=== PATIENT | female | born 1945 | race Caucasian/White ===

== ENCOUNTER 2017-06-12 10:10 | Emergency (ER) | payer OTHER ==
[2017-06-12] MEDS ORDERED: LABETALOL 20 MG/4ML SYRINGE IV ONE (10:54)
[2017-06-12 11:00] LABS: Absolute Lymphocytes (CBC) 1.7 K/uL (0.7-4.9); Absolute Monocytes 0.4 K/uL (0.1-1.3); Absolute Neutrophil 9.7 K/uL (1.8-8.0); Basophils % 0.3 % (0-1.3); Eosinophils % 0.5 % (0-4.4); Lymphocytes % 14.2 % (15.3-44.8); MCH 28.9 pg (27.0-35.0); MCV 89.2 fL (80-100); MPV 9.5 fL (7.6-11.3); Monocytes % 3.4 % (3.3-12.3); RBC Red Blood Cell Count 5.15 M/uL (3.86-4.86)
[2017-06-12 11:01] LABS: Protime INR 0.93
--- NOTE | 2017-06-12 11:05 | RAD REPORT ---
EXAM DESCRIPTION: RAD - Chest Single View - 06/12/2017 10:59 am CLINICAL HISTORY: Hypertension, shortness of breath. COMPARISON: None. FINDINGS: Portable technique limits examination quality. The lungs are grossly clear. The heart is normal in size. No displaced fractures.Hardware is present distal left clavicle. IMPRESSION: No acute intrathoracic process suspected.
[2017-06-12 11:07] LABS: Urine Blood 1+ (NEG); Urine Glucose NEGATIVE (NEG); Urine Protein NEGATIVE (NEG); Urine Specific Gravity 1.015 (1.005-1.030)
[2017-06-12 11:14] LABS: Potassium 3.5 mEq/L (3.6-5.0)
[2017-06-12 11:15] LABS: Magnesium 2.3 mg/dL (1.8-2.5)
[2017-06-12] MEDS ORDERED: HYDRALAZINE HCL 20 MG/ML VIAL ONE (13:02)
--- NOTE | 2017-06-12 13:24 | EDPHYS ---
Physician Documentation [facility] Name: Lily Glaser Age: 71 yrs Sex: Female : 1945 Arrival Date: 06/12/2017 Time: 10:12 Bed 7 Private MD: ED Physician Damián Briggs HPI: 06/12 11:09 This 71 yrs old Female presents to ER via Ambulatory with complaints of High jr8 Blood Pressure. 11:09 The patient has elevated blood pressure and discovered this at home. Onset: The jr8 symptoms/episode began/occurred acutely, today. Associated signs and symptoms: Pertinent positives: dizziness, shortness of breath. Severity of symptoms: At its worst the blood pressure was moderate, in the emergency department the blood pressure is unchanged. The patient has experienced a previous episode. The patient has not recently seen a physician. Patient stated that she has history of blood pressure problems in past. Currently on Lisinopril and clonidine patch. Stated that both have been doing well for a while but had sudden spike this morning. Denies change in meds, or lifestyle. Historical: - Allergies: 10:26 Isosorbide Mononitrate; ss 10:26 diltiazem ER; ss - Home Meds: 10:26 clonidine patch 0.1mg/24 hr [Active]; levothyroxine 75 mcg tab 1 tab once daily ss [Active]; lisinopril 40 mg Oral tab 1 tab once daily [Active]; - PMHx: 10:29 Hypertension; sv - PSHx: 10:29 shoulder; sv - Immunization history:: Adult Immunizations up to date. - Social history:: Smoking status: Patient/guardian denies using tobacco. ROS: 11:09 Eyes: Negative for injury, pain, redness, and discharge, ENT: Negative for injury, jr8 pain, and discharge, Neck: Negative for injury, pain, and swelling, Cardiovascular: Negative for chest pain, palpitations, and edema, Abdomen/GI: Negative for abdominal pain, nausea, vomiting, diarrhea, and constipation, Back: Negative for injury and pain, MS/Extremity: Negative for injury and deformity, Skin: Negative for injury, rash, and discoloration. 11:09 Respiratory: Positive for shortness of breath, Negative for cough, dyspnea on exertion, hemoptysis, orthopnea, sputum production, wheezing. 11:09 Neuro: Positive for dizziness, Negative for altered mental status, gait disturbance, headache, hearing loss, loss of consciousness, numbness, seizure activity, speech changes, syncope, near syncope, tingling, tinnitus, tremor, visual changes, weakness. Exam: 11:09 Head/Face: Normocephalic, atraumatic. Eyes: Pupils equal round and reactive to light, jr8 extra-ocular motions intact. Lids and lashes normal. Conjunctiva and sclera are non-icteric and not injected. Cornea within normal limits. Periorbital areas with no swelling, redness, or edema. ENT: Nares patent. No nasal discharge, no septal abnormalities noted. Tympanic membranes are normal and external auditory canals are clear. Oropharynx with no redness, swelling, or masses, exudates, or evidence of obstruction, uvula midline. Mucous membranes moist. Neck: Trachea midline, no thyromegaly or masses palpated, and no cervical lymphadenopathy. Supple, full range of motion without nuchal rigidity, or vertebral point tenderness. No Meningismus. Cardiovascular: Regular rate and rhythm with a normal S1 and S2. No gallops, murmurs, or rubs. Normal PMI, no JVD. No pulse deficits. Respiratory: Lungs have equal breath sounds bilaterally, clear to auscultation and percussion. No rales, rhonchi or wheezes noted. No increased work of breathing, no retractions or nasal flaring. Abdomen/GI: Soft, non-tender, with normal bowel sounds. No distension or tympany. No guarding or rebound. No evidence of tenderness throughout. Back: No spinal tenderness. No costovertebral tenderness. Full range of motion. Skin: Warm, dry with normal turgor. Normal color with no rashes, no lesions, and no evidence of cellulitis. MS/ Extremity: Pulses equal, no cyanosis. Neurovascular intact. Full, normal range of motion. Neuro: Awake and alert, GCS 15, oriented to person, place, time, and situation. Cranial nerves II-XII grossly intact. Motor strength 5/5 in all extremities. Sensory grossly intact. Cerebellar exam normal. Normal gait. Vital Signs: 10:26 BP 229 / 87; Pulse 80; Resp 20; Temp 97.8(TE); Pulse Ox 100% on R/A; Weight 77.11 kg; ss Height 5 ft. 8 in. (172.72 cm); Pain 0/10; 12:11 BP 212 / 82; Pulse 57; Resp 20; Pulse Ox 99% on R/A; sv 13:13 BP 191 / 69; Pulse 68; Pulse Ox 100% ; sg 13:28 BP 201 / 77; Pulse 72; Resp 14; Pulse Ox 99% ; sv 14:28 BP 155 / 57; Pulse 60 MON; Resp 16 S; Pulse Ox 98% on R/A; Pain 0/10; sg 10:26 Body Mass Index 25.85 (77.11 kg, 172.72 cm) ss MDM: 10:22 Patient medically screened. 8 13:22 Data reviewed: vital signs, nurses notes, lab test result(s), EKG, radiologic studies, jr8 plain films, and as a result, I will discharge patient. Data interpreted: Pulse oximetry: on room air is 100 %. Interpretation: normal. Counseling: I had a detailed discussion with the patient and/or guardian regarding: the historical points, exam findings, and any diagnostic results supporting the discharge/admit diagnosis, lab results, radiology results, the need for outpatient follow up, a blast furnace operator, a family practitioner, to return to the emergency department if symptoms worsen or persist or if there are any questions or concerns that arise at home. Response to treatment: the patient's symptoms have markedly improved after treatment. ED course: Told to go a head and replace her clonidine patch today. To come back if she were to worsen . 06/12 10:33 Order name: Basic Metabolic Panel; Complete Time: 11:06/12 10:33 Order name: BNP; Complete Time: 06/12 10:33 Order name: CBC with Diff; Complete Time: 11:06/12 10:33 Order name: Magnesium; Complete Time: 11:06/12 10:33 Order name: PT-INR; Complete Time: 11:06/12 10:33 Order name: Troponin (emerg Dept Use Only); Complete Time: 06/12 10:33 Order name: XRAY Chest (1 view); Complete Time: 11:08 06/12 10:33 Order name: EKG; Complete Time: 10:06/12 10:33 Order name: Cardiac monitoring; Complete Time: 10:33 [facility] 06/12 10:33 Order name: EKG - Nurse/Tech; Complete Time: 15:07 [facility] 06/12 10:52 Order name: Urine Dipstick--Ancillary (enter results); Complete Time: 11:08 06/12 10:33 Order name: IV Saline Lock; Complete Time: 10:33 [facility] 06/12 10:33 Order name: Labs collected and sent; Complete Time: 10:33 [facility] 06/12 10:33 Order name: O2 Per Protocol; Complete Time: 10: [facility] 06/12 10:33 Order name: O2 Sat Monitoring; Complete Time: 10:34 [facility] 06/12 10:33 Order name: Urine Dipstick-Ancillary (obtain specimen); Complete Time: 15: Administered Medications: 10:45 Drug: Labetalol 20 mg Route: IVP; Infused Over: 2 mins; Site: right antecubital; sg 11:15 Follow up: Response: No adverse reaction; Blood pressure is unchanged sg 13:00 Drug: hydrALAZINE 10 mg Route: IV; Rate: calculated rate; Site: right antecubital; sg 14:02 Drug: cloNIDine 0.2 mg Route: PO; dm5 15:06 Follow up: Response: No adverse reaction; Blood pressure is lowered sg Disposition: 06/12/17 13:23 Discharged to Home. Impression: Essential (primary) hypertension. - Condition is Stable. - Discharge Instructions: Hypertension. - Medication Reconciliation Form, Thank You Letter, Antibiotic Education, Prescription Opioid Use form. - Follow up: Aristides Keita MD; When: 2 - 3 days; Reason: Recheck today's complaints, Continuance of care, Re-evaluation by your physician. Follow up: Mark Canales MD; When: 1 - 2 days; Reason: Recheck today's complaints, Continuance of care, Re-evaluation by your physician. - Problem is new. - Symptoms have improved. Addendum: 06/14/2017 06:13 Co-signature as Attending Physician, Damián Briggs MD. g s Signatures: Dispatcher [facility] Vivienne Garcia, RN RN dm5 Hannah Hernandez RN RN sv Gay, Steven, RN RN sg Smirch, Shelby, RN RN Han Carmichael PA PA jr8 Damián Briggs MD MD gs
--- NOTE | 2017-06-12 13:24 | ER ---
Nurse's Notes [facility] Name: Lily Glaser Age: 71 yrs Sex: Female : 1945 Arrival Date: 06/12/2017 Time: 10:12 Bed 7 Private MD: Diagnosis: Essential (primary) hypertension Presentation: 06/12 10:22 Presenting complaint: Patient states: Pt reports that she keeps a daily log of her ss blood pressures, and this morning it was reading high, 228/???. Pt c/o anxiety and shortness of breath that began this morning. Transition of care: patient was not received from another setting of care. Onset of symptoms was June 12, 2017. Care prior to arrival: None. 10:22 Method Of Arrival: Ambulatory ss 10:22 Acuity: IESHA 3 ss Historical: - Allergies: 10:26 Isosorbide Mononitrate; ss 10:26 diltiazem ER; ss - Home Meds: 10:26 clonidine patch 0.1mg/24 hr [Active]; levothyroxine 75 mcg tab 1 tab once daily ss [Active]; lisinopril 40 mg Oral tab 1 tab once daily [Active]; - PMHx: 10:29 Hypertension; sv - PSHx: 10:29 shoulder; sv - Immunization history:: Adult Immunizations up to date. - Social history:: Smoking status: Patient/guardian denies using tobacco. Screenin:30 Abuse screen: Denies threats or abuse. Denies injuries from another. Nutritional sv screening: No deficits noted. Tuberculosis screening: No symptoms or risk factors identified. Fall Risk None identified. Assessment: 10:34 General: Appears in no apparent distress. comfortable, slender, well developed, sv Behavior is calm, cooperative, appropriate for age. Pain: Denies pain. Neuro: Level of Consciousness is awake, alert, obeys commands, Oriented to person, place, time, situation, Moves all extremities. Full function Gait is steady, Speech is normal, Reports dizziness. Cardiovascular: Patient's skin is warm and dry. Respiratory: Respiratory effort is even, unlabored, Respiratory pattern is regular, symmetrical. Derm: Skin is normal. Musculoskeletal: Range of motion: intact in all extremities. 10:45 Reassessment: Patient appears in no apparent distress at this time. No changes from sv previously documented assessment. Patient and/or family updated on plan of care and expected duration. Pain level reassessed. Patient is alert, oriented x 3, equal unlabored respirations, skin warm/dry/pink. 13:56 Reassessment: Clonidine patch removed by Han SAINZ. sv 14:00 Reassessment: Additional blood pressure medication ordered and administered. Will dm5 continue to monitor patient. Vital Signs: 10:26 BP 229 / 87; Pulse 80; Resp 20; Temp 97.8(TE); Pulse Ox 100% on R/A; Weight 77.11 kg; ss Height 5 ft. 8 in. (172.72 cm); Pain 0/10; 12:11 BP 212 / 82; Pulse 57; Resp 20; Pulse Ox 99% on R/A; sv 13:13 BP 191 / 69; Pulse 68; Pulse Ox 100% ; sg 13:28 BP 201 / 77; Pulse 72; Resp 14; Pulse Ox 99% ; sv 14:28 BP 155 / 57; Pulse 60 MON; Resp 16 S; Pulse Ox 98% on R/A; Pain 0/10; sg 10:26 Body Mass Index 25.85 (77.11 kg, 172.72 cm) ED Course: 10:12 Patient arrived in ED. as 10:22 Han Carmichael PA is PHCP. jr8 10:22 Damián Briggs MD is Attending Physician. jr8 10:24 Triage completed. ss 10:26 Arm band placed on right wrist. ss 10:28 Hannah Hernandez, CAMILLE is Primary Nurse. sv 10:28 Initial lab(s) drawn, by ED staff, sent to lab. Inserted saline lock: 22 gauge in right sv antecubital area, using aseptic technique. ,using aseptic technique. diffusics, started by [facility] Blood collected. 10:30 Nurse Practitioner and/or Physician Outsole Cutter Machine to see patient. sv 10:30 Patient has correct armband on for positive identification. Placed in gown. Bed in low sv position. Call light in reach. Adult w/ patient. book illustrator on. Pulse ox on. NIBP on. Door closed. Head of bed elevated. 10:58 X-ray completed. Portable x-ray completed in exam room. Patient tolerated procedure ml well. 11:00 XRAY Chest (1 view) In Process Unspecified. EDMS 13:23 Aristides Keita MD is Referral Physician. jr8 13:23 Mark Canales MD is Referral Physician. jr8 Administered Medications: 10:45 Drug: Labetalol 20 mg Route: IVP; Infused Over: 2 mins; Site: right antecubital; sg 11:15 Follow up: Response: No adverse reaction; Blood pressure is unchanged sg 13:00 Drug: hydrALAZINE 10 mg Route: IV; Rate: calculated rate; Site: right antecubital; sg 14:02 Drug: cloNIDine 0.2 mg Route: PO; dm5 15:06 Follow up: Response: No adverse reaction; Blood pressure is lowered Outcome: 13:23 Discharge ordered by . jr8 15:07 Patient left the ED. sg Signatures: Dispatcher [employer] EDMS Vivienne Courtney RN RN dm Hannah Hernandez RN RN Joseph Prince RN RN sg Martinez, Amelia as Lopez, Melissa ml Smirch, Shelby, RN RN Han Carmichael PA PA jr8
[2017-06-12] MEDS ORDERED: cloNIDine HCl 0.1 MG TAB ONE (14:17)
--- NOTE | 2017-06-12 16:28 | EKG ---
Test Date: 2017-06-12 Test Time: 10:48:12 Tenant Coordinator: JEREMY MEASUREMENT RESULTS: Intervals: Rate: 62 AK: 140 QRSD: 96 QT: 434 QTc: 440 [place]: P: 69 AK: 140 QRS: -9 T: 79 INTERPRETIVE STATEMENTS: Normal sinus rhythm Septal infarct, age undetermined Abnormal ECG No previous ECG available for comparison Electronically Signed On 06-12-17 16:27:28 CDT by Austin Butler
== END 2017-06-12 15:07 | disposition home or self-care (01) ==
LOC: ER 10:10
DX: I10 Essential (primary) hypertension (principal); Z88.8 Allergy status to other drugs, medicaments and biological substances
CPT/HCPCS: 36415; 71045; 80048; 81003; 83735; 83880; 84484; 85025; 85610; 93005; 96374; 96375; 99284; J0360

== ENCOUNTER 2024-12-07 17:51 | Emergency (ER) | payer OTHER ==
[2024-12-07] MEDS ORDERED: LIDOCAINE 2% W/EPI 1:200,000 MPF 20 ML VIAL IM ONE (18:21)
--- NOTE | 2024-12-07 19:58 | EDPHYS ---
Physician Documentation [facility] Name: Lily Glaser Age: 79 yrs Sex: Female : 1945 Arrival Date: 12/07/2024 Time: 17:51 Bed 25 Private MD: ED Physician Tej Merida HPI: 12/07 18:32 This 79 yrs old Female presents to ER via EMS with complaints of Bleeding dr5 from surgical site this morning. 18:32 Onset: The symptoms/episode began/occurred acutely. Patient is a 79-year-old female dr5 with history of hypertension coming in with bleeding from surgical site of right upper leg that started when she was discharged from the hospital this morning. Patient reports that she had a heart cath completed on her right groin and was given Plavix and Lovenox and is still bleeding from the surgical site. Patient denies chest pain, shortness of breath, abdominal pain, nausea, vomiting or diarrhea.. Historical: - Allergies: 18:11 diltiazem ER; jb4 18:11 Isosorbide Mononitrate; jb4 18:11 Ciprofloxacin; jb4 18:11 Codeine; jb4 18:11 Furosemide; jb4 - PMHx: 18:11 Hypertension; jb4 - Immunization history:: Adult Immunizations up to date. - Infectious Disease History:: Denies. - Social history:: Smoking status: Patient denies any tobacco usage or history of. ROS: 18:32 Constitutional: as per hpi dr5 Exam: 18:32 Constitutional: This is a well developed, well nourished patient who is awake, alert, dr5 and in no acute distress. Head/Face: Normocephalic, atraumatic. Eyes: Pupils equal round and reactive to light, extra-ocular motions intact. Lids and lashes normal. Conjunctiva and sclera are non-icteric and not injected. Cornea within normal limits. Periorbital areas with no swelling, redness, or edema. Neck: Trachea midline, no thyromegaly or masses palpated, and no cervical lymphadenopathy. Supple, full range of motion without nuchal rigidity, or vertebral point tenderness. No Meningismus. Chest/axilla: Normal chest wall appearance and motion. Nontender with no deformity. No lesions are appreciated. Cardiovascular: Regular rate and rhythm with a normal S1 and S2. Normal PMI, no JVD. No pulse deficits. Respiratory: Lungs have equal breath sounds bilaterally, clear to auscultation. No rales, rhonchi or wheezes noted. No increased work of breathing, no retractions or nasal flaring. Back: No spinal tenderness. No costovertebral tenderness. Full range of motion. Skin: Warm, dry with normal turgor. Normal color with no rashes, no lesions, and no evidence of cellulitis. Patient has a small incision to right upper leg that is bleeding. Patient had Tylenol and pressure dressing applied prior to arrival. MS/ Extremity: Pulses equal, no cyanosis. Neurovascular intact. Full, normal range of motion. Neuro: Awake and alert, GCS 15, oriented to person, place, time, and situation. Cranial nerves II-XII grossly intact. Motor strength 5/5 in all extremities. Sensory grossly intact. Cerebellar exam normal. Normal gait. Vital Signs: 18:08 BP 144 / 73; Pulse 68; Resp 16; Temp 98.8(O); Pulse Ox 98% ; jb4 19:07 BP 131 / 53; Pulse 59; Resp 16; Pulse Ox 98% on R/A; jb4 19:49 BP 132 / 64; Pulse 62; Resp 16; Pulse Ox 98% on R/A; jb4 Laceration: 18:32 Wound Repair of .3cm ( 0.1in ) subcutaneous laceration to right femoral area. Linear dr5 shaped.. Small, steady bleeding. Distal neuro/vascular/tendon intact. Anesthesia: Local anesthetic administered with 1 mls of 1% lidocaine w/ Epi. Wound prep: Simple cleansing. Skin closed with 1 4-0 Prolene using simple sutures and sterile technique. Dressed with pressure dressing, non-adherent dressing. Patient tolerated well. MDM: 18:12 Medical Screening Exam initiated dr5 20:55 Differential Diagnosis Hematoma, surgical site complication, bleeding from surgical dr5 site, laceration, abrasion. Data reviewed: vital signs, nurses notes. Consideration of Admission/Observation Escalation of care including admission/observation considered. Escalation considered if bleeding did not resolve in ER.. I considered the following discharge prescriptions or medication management in the emergency department I discussed and recommended Over The Counter medications, Medications were administered in the Emergency Department. See MAR. Care significantly affected by the following chronic conditions: Hypertension. Care significantly affected by the following Social Determinants of Health: Poor access to healthcare and/or lack of insurance, Poor access to transportation, Problems related to employment. Counseling: I had a detailed discussion with the patient and/or guardian regarding the historical points, exam findings, and any diagnostic results supporting the discharge/admit diagnosis, the presence of at least one elevated blood pressure reading (>120/80) during this emergency department visit, the need for outpatient follow up, for definitive care, a family practitioner, to return to the emergency department if symptoms worsen or persist or if there are any questions or concerns that arise at home. Medication response: Lidocaine. Response to treatment: the patient's symptoms have resolved after treatment. Special discussion: I discussed with the patient/guardian in detail that at this point there is no indication for admission to the hospital. It is understood, however, that if the symptoms persist or worsen the patient needs to return immediately for re-evaluation. Based on the history and exam findings, there is no indication for further emergent testing or inpatient evaluation. I discussed with the patient/guardian the need to see the primary care provider for further evaluation of the symptoms. ED course: 1 suture placed with resolution of bleeding. Surgicel placed on wound to ensure bleeding has stopped. Patient observed for 30 minutes with no bleeding. Will have patient follow up with primary care doctor and call tomorrow. All questions answered. Strict ER Precautions given.. 12/07 18:21 Order name: Dressing - Wound; Complete Time: 18:51 dr5 12/07 18:21 Order name: Gloves, Sterile; Complete Time: 18:51 dr5 12/07 18:21 Order name: Prolene, Sutures; Complete Time: 18:51 dr5 12/07 18:21 Order name: Setup Suture Tray; Complete Time: 18:51 dr5 Administered Medications: 18:40 Drug: Lidocaine-Epinephrine Infiltration -1%: (1:100,000) 20 ml 20 ml Infiltration jb4 once; to bedside {Note: administered by er provider.} Volume: 20 ml; Route: Infiltration; Disposition Summary: 12/07/24 19:57 Discharge Ordered Notes: Location: Home dr5 Condition: Stable dr5 Diagnosis - Postprocedural hemorrhage of skin and subcutaneous tissue following other procedure dr5 Followup: dr5 - With: Emergency Department - When: As needed - Reason: Worsening of condition Followup: dr5 - With: Private Physician - When: 1 - 2 days - Reason: Recheck today's complaints, Continuance of care, Re-evaluation by your physician Discharge Instructions: - Discharge Summary Sheet dr5 - Hematoma dr5 Forms: - Medication Reconciliation Form dr5 - Patient Portal Instructions dr5 - Leadership Thank You Letter dr5 Signatures: Steffen Garg RN RN jb4 Jeremiah Magana, HECTOR-C INDUSTRIAL EDUCATION TEACHER-Cdr5
--- NOTE | 2024-12-07 19:58 | ER ---
Nurse's Notes [facility] Name: Lily Glaser Age: 79 yrs Sex: Female : 1945 Arrival Date: 12/07/2024 Time: 17:51 Bed 25 Private MD: Diagnosis: Postprocedural hemorrhage of skin and subcutaneous tissue following other procedure Presentation: 12/07 18:09 Chief complaint: Patient states: Pt had a cath via the right groin, was discharged jb4 today and had been home about 1 hour when it started bleeding again, pt reports moderate amount of bleeding. Hematoma noted, pressure bandage applied. Coronavirus screen: At this time, the client does not indicate any symptoms associated with coronavirus-19. Ebola Screen: No symptoms or risks identified at this time. Initial Sepsis Screen: Does the patient meet any 2 criteria? No. Patient's initial sepsis screen is negative. Does the patient have a suspected source of infection? No. Patient's initial sepsis screen is negative. Risk Assessment: Do you want to hurt yourself or someone else? Patient reports no desire to harm self or others. Onset of symptoms was December 07, 2024. Transition of care: patient was not received from another setting of care. 18:09 Method Of Arrival: EMS: [facility] jb4 18:09 Acuity: IESHA 3 jb4 Historical: - Allergies: 18:11 diltiazem ER; jb4 18:11 Isosorbide Mononitrate; jb4 18:11 Ciprofloxacin; jb4 18:11 Codeine; jb4 18:11 Furosemide; jb4 - PMHx: 18:11 Hypertension; jb4 - Immunization history:: Adult Immunizations up to date. - Infectious Disease History:: Denies. - Social history:: Smoking status: Patient denies any tobacco usage or history of. Screenin:16 [facility] ED Fall Risk Assessment (Adult) History of falling in the last 3 months, jb4 including since admission No falls in past 3 months (0 pts) Confusion or Disorientation No (0 pts) Intoxicated or Sedated No (0 pts) Impaired Gait No (0 pts) Mobility Assist Device Used No (0 pt) Altered Elimination No (0 pt) Score/Fall Risk Level 0 - 2 = Low Risk Oriented to surroundings, Maintained a safe environment. Abuse screen: Denies threats or abuse. Nutritional screening: No deficits noted. Tuberculosis screening: No symptoms or risk factors identified. Assessment: 18:15 General: Appears in no apparent distress. comfortable, Behavior is calm, cooperative, jb4 appropriate for age. Pain: Denies pain. Neuro: Level of Consciousness is awake, alert, obeys commands, Oriented to person, place, time, situation. Cardiovascular: Patient's skin is warm and dry. Respiratory: Airway is patent Respiratory effort is even, unlabored, Respiratory pattern is regular, symmetrical. Derm: Skin is intact, Skin is pink, warm \T\ dry. Musculoskeletal: Circulation, motion, and sensation intact. Range of motion: intact in all extremities, Hematoma and small amount of bleeding noted to cath site. 19:05 Reassessment: Pt is no longer bleeding from cath site. jb4 19:49 Reassessment: Patient appears in no apparent distress at this time. Patient and/or jb4 family updated on plan of care and expected duration. Pain level reassessed. Patient is alert, oriented x 3, equal unlabored respirations, skin warm/dry/pink. No bleeding noted. Vital Signs: 18:08 BP 144 / 73; Pulse 68; Resp 16; Temp 98.8(O); Pulse Ox 98% ; jb4 19:07 BP 131 / 53; Pulse 59; Resp 16; Pulse Ox 98% on R/A; jb4 19:49 BP 132 / 64; Pulse 62; Resp 16; Pulse Ox 98% on R/A; jb4 ED Course: 18:08 Patient arrived in ED. jb4 18:11 Triage completed. jb4 18:11 Jeremiah Magana FNP-C is [facility]. dr5 18:11 Tej Merida MD is Attending Physician. dr5 18:13 Arm band placed on right wrist. jb4 19:48 Steffen Garg, [place]IL[place] is Primary Nurse. jb4 20:16 Patient has correct armband on for positive identification. Bed in low position. Call jb4 light in reach. Side rails up X 1. Provided Education on: discharge instructions. 20:16 No provider procedures requiring assistance completed. Patient did not have IV access jb4 during this emergency room visit. Administered Medications: 18:40 Drug: Lidocaine-Epinephrine Infiltration -1%: (1:100,000) 20 ml 20 ml Infiltration jb4 once; to bedside {Note: administered by er provider.} Volume: 20 ml; Route: Infiltration; Medication: 20:16 VIS not applicable for this client. jb4 Outcome: 19:57 Discharge ordered by . dr5 20:16 Discharged to home ambulatory, with family, jb4 20:16 Condition: stable 20:16 Discharge instructions given to patient, family, Instructed on discharge instructions, follow up and referral plans. Demonstrated understanding of instructions, follow-up care, 20:26 Patient left the ED. jb4 Signatures: Steffen Garg RN RN jb4 Jeremiah Magana, DIAL MOUNTER-C DIAL MOUNTER-[id number]
[2024-12-07 20:50] VITALS: TEMP 98.8; O2SAT 98
[2024-12-07 20:53] VITALS: BP 132/64
== END 2024-12-07 20:26 | disposition home or self-care (01) ==
LOC: ER 17:51
DX: L76.22 Postprocedural hemorrhage of skin and subcutaneous tissue following other procedure (principal); Z98.61 Coronary angioplasty status
CPT/HCPCS: 12001; 99283